=== PATIENT | male | born 1985 | race African-American/Black ===

== ENCOUNTER 2019-02-21 10:06 | Emergency (ER) | payer OTHER ==
[~2019-02-21] VITALS: Ht 167.6 cm; Wt 113.4 kg
[2019-02-21 10:35] LABS: PLATELET COUNT 172 K/uL (142-355)
[2019-02-21 10:47] LABS: POTASSIUM 3.9 mmol/L (3.6-5.2)
[2019-02-21 13:15] LABS: POTASSIUM 3.9 mmol/L (3.6-5.2)
[2019-02-21 13:40] VITALS: BP 124/71; TEMP 97.8
== END 2019-02-21 13:40 | disposition home or self-care (01) ==
LOC: ED 10:06
PROVIDERS: Emergency Medicine
DX: E11.9 Type 2 diabetes mellitus without complications (principal); E87.1 Hypo-osmolality and hyponatremia; E86.0 Dehydration
CPT/HCPCS: 36415; 80048; 80053; 81000; 82962; 83036; 85027; 96360; 96361; 99284

== ENCOUNTER 2020-08-13 16:16 | Emergency (ER) | payer OTHER ==
[~2020-08-13] VITALS: Ht 167.6 cm; Wt 101.2 kg
[2020-08-13 17:07] LABS: PLATELET COUNT 169 K/uL (142-355)
[2020-08-13 17:17] LABS: POTASSIUM 3.9 mmol/L (3.6-5.2)
[2020-08-13 18:40] VITALS: BP 131/79; TEMP 98.5
== END 2020-08-13 18:40 | disposition home or self-care (01) ==
LOC: ED 16:16
PROVIDERS: Emergency Medicine Emergency Medical Services
DX: E11.65 Type 2 diabetes mellitus with hyperglycemia (principal); Z79.84 Long term (current) use of oral hypoglycemic drugs
CPT/HCPCS: 36415; 80053; 81000; 82962; 83690; 85027; 96360; 96375; 99284; J1815